=== PATIENT | female | born 1980 | race Caucasian/White ===

== ENCOUNTER 2019-01-18 03:00 | Emergency (ER) | payer MEDICAID, OTHER ==
[2019-01-18 06:22] LABS: URINE BLOOD (Dip) POC Negative (NEGATIVE); URINE GLUCOSE (Dip) POC Negative (NEGATIVE); URINE KETONES (Dip) POC Negative (NEGATIVE); URINE LEUKOCYTE EST (Dip) POC Negative (NEGATIVE); URINE NITRITE (Dip) POC Negative (NEGATIVE); URINE TOTAL PROTEIN POC Negative (NEGATIVE)
== END 2019-01-18 07:13 | disposition home or self-care (01) ==
LOC: FTE 07:13
DX: M54.6 Pain in thoracic spine (principal); R11.0 Nausea
CPT/HCPCS: 81003; 81025; 99283